=== PATIENT | female | born 1955 | race Two or more races ===

== ENCOUNTER 2017-05-14 05:14 | Emergency (ER) | payer BC ==
[2017-05-14 05:25] VITALS: BP 142/79
--- NOTE | 2017-05-14 07:34 | ER Document Report ---
HPI - HPI Patient complains to provider of: ear pain and dizziness Onset: Last week Onset/Duration: Intermittent Quality of pain: Achy Severity: Moderate Pain Level: 4 Context: Patient states she was seen by her doctor about 10 days ago and placed on cetirizine for ear pain. She states she has been having intermittent dizziness. Denies headache, no chest pain, no shortness of breath. Associated Symptoms: Earache, Rhinnorhea Exacerbated by: Movement Relieved by: Denies Similar symptoms previously: Yes Recently seen / treated by doctor: Yes - ROS ROS below otherwise negative: Yes Systems Reviewed and Negative: Yes All other systems reviewed and negative - EENT EENT: REPORTS: Ear Pain, Nasal Drainage-Clear. DENIES: Congestion - NEURO Neurology: DENIES: Headache - CARDIOVASCULAR Cardiovascular: DENIES: Chest pain - RESPIRATORY Respiratory: DENIES: Trouble Breathing - GASTROINTESTINAL Gastrointestinal: DENIES: Abdominal Pain - URINARY Urinary: DENIES: Dysuria - MUSCULOSKELETAL Musculoskeletal: DENIES: Extremity pain - DERM Skin Color: Normal, [place] Skin Problems: None Past Medical History - General Information source: Patient - Social History Smoking Status: Never Smoker Frequency of alcohol use: None Drug Abuse: None Lives with: Family Family History: Reviewed & Not Pertinent - Medical History Medical History: Negative Surgical Hx: Negative Vertical Provider Document - CONSTITUTIONAL Agree With Documented VS: Yes Exam Limitations: No Limitations General Appearance: WD/WN, No Apparent Distress - HEENT HEENT: Atraumatic, Normocephalic Notes: TMs with fluid bilaterally. Throat is clear, no dizziness at this time per patient. - NECK Neck: Normal Inspection, Supple - RESPIRATORY Respiratory: Breath Sounds Normal, No Respiratory Distress O2 Sat by Pulse Oximetry: 96 - CARDIOVASCULAR Cardiovascular: Regular Rate, Regular Rhythm - GI/ABDOMEN Gastrointestinal: Abdomen Soft - MUSCULOSKELETAL/EXTREMETIES Musculoskeletal/Extremeties: MAEW - NEURO Level of Consciousness: Awake, Alert, Appropriate - DERM Integumentary: Warm, Dry, No Rash Course - Vital Signs Vital signs: Temp Pulse Resp BP Pulse Ox 97.4 F 76 16 142/79 H 96 05/14/17 05:16 05/14/17 05:16 05/14/17 05:16 05/14/17 05:16 05/14/17 05:16 Discharge - Discharge Clinical Impression: Bilateral acute serous otitis media Qualifiers: Recurrence: not specified as recurrent Qualified Code(s): H65.03 - Acute serous otitis media, bilateral Condition: Good Disposition: HOME, SELF-CARE Additional Instructions: Continue daily cetirizine as prescribed by your doctor Tylenol or Motrin as needed for ear discomfort Meclizine as needed for dizziness Push fluids Follow-up with your doctor tomorrow for recheck Return as needed Prescriptions: Meclizine HCl 25 mg PO TID PRN #30 tablet PRN Reason:
== END 2017-05-14 07:41 | disposition home or self-care (01) ==
LOC: ER 05:14
DX: H65.03 Acute serous otitis media, bilateral (principal); R42 Dizziness and giddiness; J34.89 Other specified disorders of nose and nasal sinuses
CPT/HCPCS: 99283